=== PATIENT | male | born 1965 | race Caucasian/White ===

== ENCOUNTER → 2016-06-15 | Outpatient (CLI) | payer BC ==
--- NOTE | ~2016-06-15 | CR184 ---
[facility] A Service of [facility] RADIOLOGY TEXT RESULTS PATIENT: DANII GARCIA LOCATION: [facility] : 63 UNIT #: [id number] AGE: [address]: Pricilla Georges MD SEX: M ORDER DR: [id number] [facility] [address] [place], [place] [address] [id number] O MR#: [id number] Acc #: [id number] NAME: DANII GARCIA : 1965 SEX: M STUDY DATE/TIME: 06/15/2016 17:53 UNIT: [facility] ROOM: STUDY DESCRIPTION: CR Lumbar Spine Min 4 Views Attending Physician: Pricilla Georges M.D. Ordering Physician: Pricilla Georges M.D. Primary Care Physician: Pricilla Georges M.D. MEDICAL IMAGING REPORT This report is preliminary unless electronic signature is present EXAM Lumbar spine series with flexion/extension views HISTORY History back pain, numbness, tingling for over 5 years. COMPARISON Lumbar spine films 06/22/2013 FINDINGS AP, lateral and cone lateral views of the lumbar spine submitted as well as flexion/extension lateral views. Examination demonstrates multilevel degenerative disc change with degenerative disc changes L2-3, L3-4, L4-5, L5-S1. Mild disc space narrowing at the 3-4 and 4-5 levels and also at 51. No fracture. No spondylolysis or spondylolisthesis. Posterior elements unremarkable. No abnormal motion with flexion and extension views. Visualized SI joints and paravertebral soft tissues unremarkable. IMPRESSION Mild multilevel degenerative disc changes L2-3 through L5-S1 not significantly progressed from June 2013. No abnormal motion on flexion and extension views. Dictated by... Deepthi Contreras M.D. THIS IS AN ELECTRONICALLY VERIFIED REPORT Deepthi Contreras M.D. at 06/16/2016 4:59 PM Marcellus TD: 06/16/2016 12:55 [facility] A Service of [facility] RADIOLOGY TEXT RESULTS PATIENT: DANII GARCIA LOCATION: [facility] #: [id number] : 63 UNIT #: [id number] AGE: [address]: Pricilla Georges MD SEX: M ORDER DR: JOB #: [id number] MEDICAL IMAGING REPORT COPY
--- NOTE | ~2016-06-15 | CR59 ---
[facility] A Service of [facility] RADIOLOGY TEXT RESULTS PATIENT: DANII GARCIA LOCATION: [facility] : 63 UNIT #: [id number] AGE: [address]: Pricilla Georges MD SEX: M ORDER DR: [id number] [facility] [address] [place], [place] [address] [id number] O MR#: [id number] Acc #: [id number] NAME: DANII GARCIA : 1965 SEX: M STUDY DATE/TIME: 06/15/2016 17:52 UNIT: [facility] ROOM: STUDY DESCRIPTION: CR Cervical Spine 5 View W Fle Attending Physician: Pricilla Georges M.D. Ordering Physician: Pricilla Georges M.D. Primary Care Physician: Pricilla Georges M.D. MEDICAL IMAGING REPORT This report is preliminary unless electronic signature is present EXAM C-spine series with flexion/extension views COMPARISON 06/22/2013 FINDINGS AP, lateral and open mouth odontoid views submitted as well as flexion/extension lateral views. Examination demonstrates minimal degenerative disc changes with mild disc space narrowing at C4-5, C5-6, and C6-7 with minimal anterior hypertrophic change at C5-6. No posterior osteophyte is seen. Facet arthropathic changes noted at C7-T1 with sclerosis and space narrowing. No significant change when compared to the patient's study from June 2013. The flexion/extension lateral views demonstrate normal cervical motion. The odontoid C1-2 relationship appear normal. Prevertebral soft tissues appear normal. IMPRESSION Minimal multilevel degenerative disc changes as well as moderate C7-T1 facet arthropathy. The facet arthropathy may be a significant contributing factor to the neck pain given the reactive sclerosis and space narrowing. No abnormal motion identified on flexion/extension views and no significant progression from 2013. Dictated by... Deepthi Contreras M.D. THIS IS AN ELECTRONICALLY VERIFIED REPORT Deepthi Contreras M.D. at 06/16/2016 4:59 PM COCO/octaviano TD: 06/16/2016 12:42 JOB #: [id number] [facility] A Service of [facility] RADIOLOGY TEXT RESULTS PATIENT: DANII GARCIA LOCATION: [facility] #: [id number] : 63 UNIT #: [id number] AGE: [address]: Pricilla Georges MD SEX: M ORDER DR: MEDICAL IMAGING REPORT COPY
== END | disposition home or self-care (01) ==
LOC: CRAD 17:23
DX: M54.5 Low back pain (principal); R20.2 Paresthesia of skin; G89.29 Other chronic pain; M51.36 Other intervertebral disc degeneration, lumbar region; M51.37 Other intervertebral disc degeneration, lumbosacral region; M46.93 Unspecified inflammatory spondylopathy, cervicothoracic region
CPT/HCPCS: 72052; 72110